=== PATIENT | female | born 1950 | race African-American/Black ===

== ENCOUNTER 2017-03-04 21:08 | Inpatient (IN) | payer MEDICARE, MEDICAID ==
[~2017-03-04] VITALS: Ht 162.6 cm; Wt 111.0 kg
[~2017-03-04 21:08] MED LIST: BIDIL PO; DIPH25CA83 PO; DOUNEB IH; FERR-63 PO; FLUT16SP15 BOTHNSTRLS; FURO40TA5 PO; HYDR25TA PO; LIDO30CR TP; MONT10TA24 PO; PREG150C PO; ROSU40TA PO
[2017-03-04 22:48] LABS: BASOPHILS % 0.6 % (0.0-2.0); EOSINOPHILS % 1.5 % (0.0-5.0); HEMATOCRIT. 27.7 % (36.0-48.0); HEMOGLOBIN. 9.1 g/dL (12.0-16.0); LYMPHOCYTES % 18.3 % (20.0-50.0); MEAN CORPUSCULAR VOLUME 85.6 fL (81.0-99.0); MEAN PLATELET VOLUME 7.5 fl (7.4-10.4); MONOCYTES % 7.7 % (2.0-8.0); NEUTROPHILS % 71.9 % (40.0-76.0); PLATELET 289 x1000/uL (130-400); RED BLOOD CELL COUNT 3.23 mill/uL (4.2-5.4); RED CELL DISTRIBUTION WIDTH 20.7 % (11.6-14.6)
[2017-03-04 22:51] LABS: CHLORIDE 104 mEq/L (98-107)
[2017-03-04 22:53] LABS: PROTHROMBIN TIME 10.7 sec (9.4-11.6)
[2017-03-04 22:55] LABS: BG CARBOXYHEMOGLOBIN 0.8 % (0.5-1.5); BG DEOXYHEMOGLOBIN 3.9 % (0.0-5.0); BG FRACTION INSPIRED OXYGEN 28; BG HCO3 ACT 29.1 mmol/L (22.0-26.0); BG METHEMOGLOBIN 0.1 % (0.0-1.5); BG OXYGEN SATURATION 96.1 % (92.0-98.5); BG OXYHEMOGLOBIN 95.2 % (94.0-97.0); BG PCO2 51.9 mmHg (35.0-45.0); BG PH 7.366 (7.350-7.450); BG PO2 85.3 mmHg (75.0-100.0); BG SAMPLE SITE RIGHT RADIAL; BG TOTAL HEMOGLOBIN 9.9 g/dL (12.0-18.0); BG VENT MODE NASAL CANNULA
[2017-03-04 22:57] LABS: CARBON DIOXIDE 30 mEq/L (21-32)
[2017-03-04 23:03] LABS: TROPONIN I < 0.02 ng/mL (0.00-0.04)
[2017-03-04] MEDS ORDERED: POTASSIUM CHLORIDE 20MEQ TABLET SR PO ONE (23:30)
[2017-03-04] MEDS ORDERED: FUROSEMIDE 40MG/4ML VIAL IVP ONE (23:30)
[2017-03-05] MEDS ORDERED: ENALAPRIL 2.5MG/2ML VIAL 2ML IV ONE (00:15)
[2017-03-05] MEDS ORDERED: DEXT 5%/0.45% NACL 1000ML 1,000 ML IV SCH (08:00)
[2017-03-05] MEDS ORDERED: CEFTRIAXONE 1 G PREMIX 50 ML IV SCH (08:00)
[2017-03-05] MEDS ORDERED: HYDROCODONE/ACETAMINOPHEN 5/325MG TABLET PO PRN (08:00)
[2017-03-05] MEDS ORDERED: MORPHINE SULFATE 1MG/ML 1ML INJ SYR(NEO) IV PRN (08:00)
[2017-03-05 08:12] VITALS: BP 113/47
[2017-03-05] MEDS ORDERED: ONDANSETRON HCL 4MG/2ML VIAL IV PRN (09:00)
[2017-03-05] MEDS ORDERED: IPRATROPIUM/ALBUTEROL 0.5-3(2.5)MG/3ML NEB INH PRN (09:00)
[2017-03-05] MEDS ORDERED: ACETAMINOPHEN 325MG TABLET PO PRN (09:00)
[2017-03-05] MEDS ORDERED: LORAZEPAM 2MG/ML CPJ IV PRN (09:00)
[2017-03-05] MEDS: POLYETHYLENE GLYCOL 3350 (17GM) 1 DOSE PACK PO SCH ×2 (09:00→17:00)
[2017-03-05 10:58] LABS: INR 1.1; PROTHROMBIN TIME 11.4 sec (9.4-11.6)
[2017-03-05] MEDS ORDERED: AZITHROMYCIN 500 MG in DEXT 5% WATER 250 ML IV NR (11:00)
[2017-03-05] MEDS ORDERED: WATER IV NR (11:00)
[2017-03-05] MEDS ORDERED: DEXT 5% IV NR (11:00)
[2017-03-05] MEDS ORDERED: AZITHROMYCIN IV NR (11:00)
[2017-03-05 11:11] LABS: BASOPHILS % 0.8 % (0.0-2.0); HEMATOCRIT. 27.3 % (36.0-48.0); HEMOGLOBIN. 8.8 g/dL (12.0-16.0); LYMPHOCYTES % 14.7 % (20.0-50.0); MEAN CORPUSCULAR VOLUME 86.8 fL (81.0-99.0); MEAN PLATELET VOLUME 7.9 fl (7.4-10.4); MONOCYTES % 8.3 % (2.0-8.0); NEUTROPHILS % 74.2 % (40.0-76.0); PLATELET 257 x1000/uL (130-400); RED BLOOD CELL COUNT 3.15 mill/uL (4.2-5.4); RED CELL DISTRIBUTION WIDTH 20.9 % (11.6-14.6)
[2017-03-05 11:23] LABS: CARBON DIOXIDE 31 mEq/L (21-32); CHLORIDE 107 mEq/L (98-107); PHOSPHORUS 3.1 mg/dL (2.5-4.9)
[2017-03-05] MEDS ORDERED: LIDOCAINE/PRILOCAINE CREAM 5 GM TUBE TOP PRN (11:30)
[2017-03-05] MEDS: PREDNISONE 20MG TABLET PO SCH (12:15)
[2017-03-05] MEDS: FERROUS SULFATE 325MG TABLET PO SCH ×3 (12:16→18:08)
[2017-03-05] MEDS: FUROSEMIDE 20MG/2ML VIAL IVP SCH (12:16)
[2017-03-05 12:40] VITALS: BP 104/45
[2017-03-05] MEDS: MORPHINE SULFATE 4 MG/ML CPJ (NOT FOR IM USE) IV PRN ×2 (12:43→19:36)
[2017-03-05 16:23] LABS: CREATINE KINASE 131 IU/L (26-192); CREATINE KINASE MB FRACTION 0.7 ng/mL (0.5-3.6); TROPONIN I < 0.02 ng/mL (0.00-0.04)
[2017-03-05 16:38] VITALS: BP 121/61
[2017-03-05] MEDS ORDERED: PREGABALIN 150 MG PO SCH (17:00)
[2017-03-05] MEDS ORDERED: DEXTROSE 50% WATER 50ML SYRINGE IV PRN (17:30)
[2017-03-05] MEDS: ISOSORB DINIT/HYDRALAZINE HCL 20/37.5MG TABLET PO SCH (17:36)
[2017-03-05] MEDS: PREGABALIN 75MG CAPSULE PO SCH (17:37)
[2017-03-05] MEDS: INSULIN LISPRO 100 UNITS/ML SUBCUT SCH ×2 (17:47→21:33)
[2017-03-05 20:07] VITALS: BP 114/45
[2017-03-05] MEDS: ATORVASTATIN CALCIUM 40MG TABLET PO SCH (21:24)
[2017-03-05] MEDS: MONTELUKAST SODIUM 10MG TABLET PO SCH (21:24)
[2017-03-05] MEDS: ZOLPIDEM TARTRATE 5MG TABLET PO PRN (21:25)
[2017-03-05] MEDS: BLOOD SUGAR DIAGNOSTIC STRIP TEST SCH (21:25)
[2017-03-06] VITALS: BP 93/45
[2017-03-06 00:12] LABS: CREATINE KINASE 114 IU/L (26-192); CREATINE KINASE MB FRACTION 1.3 ng/mL (0.5-3.6); TROPONIN I < 0.02 ng/mL (0.00-0.04)
[2017-03-06 05:10] VITALS: BP 124/55
[2017-03-06] MEDS: BLOOD SUGAR DIAGNOSTIC STRIP TEST SCH ×4 (06:27→21:33)
[2017-03-06 06:34] LABS: INR 1.1; PROTHROMBIN TIME 11.1 sec (9.4-11.6)
[2017-03-06 06:41] LABS: BASOPHILS % 0.3 % (0.0-2.0); HEMATOCRIT. 25.6 % (36.0-48.0); HEMOGLOBIN. 8.3 g/dL (12.0-16.0); LYMPHOCYTES % 14.4 % (20.0-50.0); MEAN CORPUSCULAR VOLUME 86.2 fL (81.0-99.0); MEAN PLATELET VOLUME 8.1 fl (7.4-10.4); MONOCYTES % 6.1 % (2.0-8.0); NEUTROPHILS % 79.2 % (40.0-76.0); PLATELET 256 x1000/uL (130-400); RED BLOOD CELL COUNT 2.98 mill/uL (4.2-5.4); RED CELL DISTRIBUTION WIDTH 20.4 % (11.6-14.6)
[2017-03-06 07:26] VITALS: BP 116/43
[2017-03-06 07:47] LABS: CARBON DIOXIDE 27 mEq/L (21-32); CHLORIDE 104 mEq/L (98-107); CREATINE KINASE 102 IU/L (26-192)
[2017-03-06] MEDS: INSULIN LISPRO 100 UNITS/ML SUBCUT SCH ×4 (07:50→21:00)
[2017-03-06 07:56] LABS: CREATINE KINASE MB FRACTION 1.1 ng/mL (0.5-3.6); TROPONIN I < 0.02 ng/mL (0.00-0.04)
[2017-03-06] MEDS ORDERED: AZITHROMYCIN 250 MG in DEXT 5% WATER 250 ML IV SCH (08:00)
[2017-03-06] MEDS: PREGABALIN 75MG CAPSULE PO SCH ×2 (08:30→17:29)
[2017-03-06] MEDS: HYDROCHLOROTHIAZIDE 25MG TABLET PO SCH (08:31)
[2017-03-06] MEDS: PREDNISONE 20MG TABLET PO SCH (08:32)
[2017-03-06] MEDS: ISOSORB DINIT/HYDRALAZINE HCL 20/37.5MG TABLET PO SCH ×2 (08:32→17:31)
[2017-03-06] MEDS: FUROSEMIDE 20MG/2ML VIAL IVP SCH (08:33)
[2017-03-06] MEDS ORDERED: MEDICATION NOT ON FORMULARY EA (Rosuvastatin Calcium (Crestor) 40 MG) PO SCH (09:00)
[2017-03-06] MEDS: POLYETHYLENE GLYCOL 3350 (17GM) 1 DOSE PACK PO SCH ×2 (09:00→17:00)
[2017-03-06 12:20] VITALS: BP 133/62
[2017-03-06] MEDS: MORPHINE SULFATE 4 MG/ML CPJ (NOT FOR IM USE) IV PRN (13:36)
[2017-03-06] MEDS: FERROUS SULFATE 325MG TABLET PO SCH ×2 (13:38→17:31)
[2017-03-06] MEDS ORDERED: OXYCODONE HCL/ACETAMINOPHEN 5/325MG TABLET PO PRN (15:00)
[2017-03-06] MEDS ORDERED: NALOXONE HCL 0.4 MG/ML 1ML VIAL IV PRN (15:00)
[2017-03-06 15:34] VITALS: BP 143/74
[2017-03-06] MEDS: GUAIFENESIN 200MG/10ML SUGAR FREE UDC PO PRN (18:00)
[2017-03-06 20:00] VITALS: BP 106/45
[2017-03-06] MEDS ORDERED: ENOXAPARIN 30MG/0.3ML SYR SUBCUT SCH (21:00)
[2017-03-06] MEDS: MONTELUKAST SODIUM 10MG TABLET PO SCH (21:19)
[2017-03-06] MEDS: ATORVASTATIN CALCIUM 40MG TABLET PO SCH (21:19)
[2017-03-06] MEDS: ZOLPIDEM TARTRATE 5MG TABLET PO PRN (21:19)
[2017-03-06] MEDS: ENOXAPARIN 40MG/0.4ML SYR SUBCUT SCH (21:20)
[2017-03-07] VITALS: BP 129/59
[2017-03-07] MEDS: MORPHINE SULFATE 4 MG/ML CPJ (NOT FOR IM USE) IV PRN ×3 (00:32→14:07)
[2017-03-07 01:26] LABS: CLARITY URINE CLEAR (CLEAR); COLOR URINE YELLOW (YELLOW); GLUCOSE URINE NEGATIVE (NEGATIVE); KETONES URINE NEGATIVE (NEGATIVE); LEUKOCYTE ESTERASE URINE NEGATIVE (NEGATIVE); NITRITE URINE NEGATIVE (NEGATIVE); OCCULT BLOOD URINE NEGATIVE (NEGATIVE); PROTEIN URINE 1+ (NEGATIVE); SPECIFIC GRAVITY URINE 1.016 (1.005-1.030); UROBILINOGEN URINE 0.2 E.U./dL (0.2-1.0)
[2017-03-07 04:00] VITALS: BP 112/52
[2017-03-07] MEDS: BLOOD SUGAR DIAGNOSTIC STRIP TEST SCH ×4 (06:31→21:30)
[2017-03-07] MEDS: INSULIN LISPRO 100 UNITS/ML SUBCUT SCH ×4 (06:50→21:00)
[2017-03-07 07:02] LABS: PROTHROMBIN TIME 10.9 sec (9.4-11.6)
[2017-03-07 07:08] LABS: BASOPHILS % 0.2 % (0.0-2.0); HEMATOCRIT. 25.2 % (36.0-48.0); HEMOGLOBIN. 8.2 g/dL (12.0-16.0); LYMPHOCYTES % 16.3 % (20.0-50.0); MEAN CORPUSCULAR HEMOGLOBIN 27.8 pg (28.0-32.0); MEAN CORPUSCULAR VOLUME 85.7 fL (81.0-99.0); MEAN PLATELET VOLUME 8.2 fl (7.4-10.4); MONOCYTES % 8.8 % (2.0-8.0); NEUTROPHILS % 74.7 % (40.0-76.0); PLATELET 249 x1000/uL (130-400); RED BLOOD CELL COUNT 2.95 mill/uL (4.2-5.4)
[2017-03-07 07:50] LABS: CARBON DIOXIDE 28 mEq/L (21-32); CHLORIDE 103 mEq/L (98-107)
[2017-03-07 08:00] VITALS: BP 113/58
[2017-03-07] MEDS: FUROSEMIDE 20MG/2ML VIAL IVP SCH (08:29)
[2017-03-07] MEDS: FERROUS SULFATE 325MG TABLET PO SCH ×3 (08:29→18:32)
[2017-03-07] MEDS: PREDNISONE 20MG TABLET PO SCH (08:30)
[2017-03-07] MEDS: HYDROCHLOROTHIAZIDE 25MG TABLET PO SCH (08:30)
[2017-03-07] MEDS: POLYETHYLENE GLYCOL 3350 (17GM) 1 DOSE PACK PO SCH ×2 (08:30→16:49)
[2017-03-07] MEDS: PREGABALIN 75MG CAPSULE PO SCH ×2 (08:30→16:45)
[2017-03-07] MEDS: ISOSORB DINIT/HYDRALAZINE HCL 20/37.5MG TABLET PO SCH ×2 (08:30→16:45)
[2017-03-07 11:33] VITALS: BP 113/58
[2017-03-07] MEDS ORDERED: INFLUENZA VIRUS VACCINE 0.5ML SYR IM ONE (15:00)
[2017-03-07 15:31] VITALS: BP 147/68
[2017-03-07 20:00] VITALS: BP 126/57
[2017-03-07] MEDS ORDERED: EPOETIN ALFA 10000UNITS/ML VIAL SUBCUT NR (21:00)
[2017-03-07] MEDS: MONTELUKAST SODIUM 10MG TABLET PO SCH (21:29)
[2017-03-07] MEDS: ENOXAPARIN 40MG/0.4ML SYR SUBCUT SCH (21:29)
[2017-03-07] MEDS: ATORVASTATIN CALCIUM 40MG TABLET PO SCH (21:29)
[2017-03-07] MEDS: GUAIFENESIN 200MG/10ML SUGAR FREE UDC PO PRN (21:29)
[2017-03-07] MEDS: OXYCODONE HCL/ACETAMINOPHEN 5/325MG TABLET PO PRN (21:30)
[2017-03-07] MEDS: ZOLPIDEM TARTRATE 5MG TABLET PO PRN (23:00)
[2017-03-08] VITALS (7 sets, daily range): BP systolic 103–151; BP diastolic 45–94
[2017-03-08 05:59] LABS: PROTHROMBIN TIME 10.8 sec (9.4-11.6)
[2017-03-08] MEDS: OXYCODONE HCL/ACETAMINOPHEN 5/325MG TABLET PO PRN (06:38)
[2017-03-08] MEDS: BLOOD SUGAR DIAGNOSTIC STRIP TEST SCH ×4 (06:38→21:00)
[2017-03-08] MEDS: GUAIFENESIN 200MG/10ML SUGAR FREE UDC PO PRN ×2 (06:44→13:37)
[2017-03-08 07:17] LABS: CARBON DIOXIDE 29 mEq/L (21-32); CHLORIDE 103 mEq/L (98-107)
[2017-03-08 07:22] LABS: TOTAL IRON BINDING CAPACITY 301 ug/dL (250-450)
[2017-03-08] MEDS: INSULIN LISPRO 100 UNITS/ML SUBCUT SCH ×4 (07:50→23:24)
[2017-03-08] MEDS: POLYETHYLENE GLYCOL 3350 (17GM) 1 DOSE PACK PO SCH ×2 (09:00→17:00)
[2017-03-08] MEDS: FUROSEMIDE 20MG/2ML VIAL IVP SCH (09:22)
[2017-03-08] MEDS: HYDROCHLOROTHIAZIDE 25MG TABLET PO SCH (09:22)
[2017-03-08] MEDS: ISOSORB DINIT/HYDRALAZINE HCL 20/37.5MG TABLET PO SCH ×2 (09:23→17:10)
[2017-03-08] MEDS: PREGABALIN 75MG CAPSULE PO SCH ×2 (09:23→17:04)
[2017-03-08] MEDS: FERROUS SULFATE 325MG TABLET PO SCH ×3 (09:24→17:03)
[2017-03-08] MEDS: PREDNISONE 20MG TABLET PO SCH (09:24)
[2017-03-08 09:34] LABS: BASOPHILS % 0.4 % (0.0-2.0); EOSINOPHILS % 1.7 % (0.0-5.0); HEMATOCRIT. 28.9 % (36.0-48.0); HEMOGLOBIN. 9.2 g/dL (12.0-16.0); LYMPHOCYTES % 30.1 % (20.0-50.0); MEAN CORPUSCULAR HEMOGLOBIN 27.8 pg (28.0-32.0); MEAN CORPUSCULAR VOLUME 86.9 fL (81.0-99.0); MEAN PLATELET VOLUME 8.6 fl (7.4-10.4); MONOCYTES % 9.3 % (2.0-8.0); NEUTROPHILS % 58.5 % (40.0-76.0); PLATELET 250 x1000/uL (130-400); RED BLOOD CELL COUNT 3.32 mill/uL (4.2-5.4); RED CELL DISTRIBUTION WIDTH 20.2 % (11.6-14.6)
[2017-03-08] MEDS: DIPHENHYDRAMINE 25MG CAPSULE PO PRN ×2 (17:09→23:16)
[2017-03-08] MEDS: ZOLPIDEM TARTRATE 5MG TABLET PO PRN (23:16)
[2017-03-08] MEDS: ENOXAPARIN 40MG/0.4ML SYR SUBCUT SCH (23:21)
[2017-03-08] MEDS: MONTELUKAST SODIUM 10MG TABLET PO SCH (23:22)
[2017-03-08] MEDS: ATORVASTATIN CALCIUM 40MG TABLET PO SCH (23:22)
[2017-03-09 04:00] VITALS: BP 129/63
[2017-03-09] MEDS: BLOOD SUGAR DIAGNOSTIC STRIP TEST SCH ×4 (06:41→21:00)
[2017-03-09 07:47] VITALS: BP 129/84
[2017-03-09] MEDS: INSULIN LISPRO 100 UNITS/ML SUBCUT SCH ×4 (07:50→21:00)
[2017-03-09 08:29] LABS: PROTHROMBIN TIME 10.9 sec (9.4-11.6)
[2017-03-09 08:36] LABS: BASOPHILS % 0.5 % (0.0-2.0); EOSINOPHILS % 0.1 % (0.0-5.0); HEMATOCRIT. 29.1 % (36.0-48.0); HEMOGLOBIN. 9.4 g/dL (12.0-16.0); LYMPHOCYTES % 25.5 % (20.0-50.0); MEAN CORPUSCULAR HEMOGLOBIN 27.8 pg (28.0-32.0); MEAN PLATELET VOLUME 8.6 fl (7.4-10.4); NEUTROPHILS % 64.9 % (40.0-76.0); PLATELET 298 x1000/uL (130-400); RED BLOOD CELL COUNT 3.39 mill/uL (4.2-5.4); RED CELL DISTRIBUTION WIDTH 19.9 % (11.6-14.6)
[2017-03-09 08:58] LABS: CARBON DIOXIDE 32 mEq/L (21-32); CHLORIDE 102 mEq/L (98-107)
[2017-03-09] MEDS ORDERED: POTASSIUM CHLORIDE 20MEQ TABLET SR PO NR (09:45)
[2017-03-09] MEDS: HYDROCHLOROTHIAZIDE 25MG TABLET PO SCH (10:52)
[2017-03-09] MEDS: PREDNISONE 20MG TABLET PO SCH (10:52)
[2017-03-09] MEDS: FERROUS SULFATE 325MG TABLET PO SCH ×3 (10:52→17:20)
[2017-03-09] MEDS: POLYETHYLENE GLYCOL 3350 (17GM) 1 DOSE PACK PO SCH ×2 (10:53→17:00)
[2017-03-09] MEDS: PREGABALIN 75MG CAPSULE PO SCH ×2 (10:53→17:19)
[2017-03-09] MEDS: ISOSORB DINIT/HYDRALAZINE HCL 20/37.5MG TABLET PO SCH ×2 (10:57→17:25)
[2017-03-09 11:37] VITALS: BP 141/61
[2017-03-09] MEDS: FUROSEMIDE 20MG/2ML VIAL IVP SCH (11:38)
[2017-03-09] MEDS: OXYCODONE HCL/ACETAMINOPHEN 5/325MG TABLET PO PRN ×2 (11:40→22:46)
[2017-03-09 15:32] VITALS: BP 128/65
[2017-03-09] MEDS ORDERED: ISOS1TAB PO (17:15)
[2017-03-09] MEDS ORDERED: POLY17PO3 PO (17:15)
[2017-03-09] MEDS ORDERED: LIP40 PO (17:15)
[2017-03-09] MEDS: GUAIFENESIN 200MG/10ML SUGAR FREE UDC PO PRN (17:27)
[2017-03-09] MEDS ORDERED: PNEUMOCOCCAL 23-VAL P-SAC VAC 0.5 ML IM ONE (20:00)
[2017-03-09] MEDS: MONTELUKAST SODIUM 10MG TABLET PO SCH (22:46)
[2017-03-09] MEDS: ENOXAPARIN 40MG/0.4ML SYR SUBCUT SCH (22:46)
[2017-03-09] MEDS: ATORVASTATIN CALCIUM 40MG TABLET PO SCH (22:46)
[2017-03-10 00:06] VITALS: BP 132/68
[2017-03-10] MEDS: ZOLPIDEM TARTRATE 5MG TABLET PO PRN (00:06)
[2017-03-10] MEDS: DIPHENHYDRAMINE 25MG CAPSULE PO PRN ×2 (00:06→12:44)
[2017-03-10 04:00] VITALS: BP 114/48
[2017-03-10] MEDS: BLOOD SUGAR DIAGNOSTIC STRIP TEST SCH ×2 (06:12→12:12)
[2017-03-10 07:08] LABS: INR 1.1; PROTHROMBIN TIME 10.9 sec (9.4-11.6)
[2017-03-10 07:36] LABS: BASOPHILS % 0.2 % (0.0-2.0); EOSINOPHILS % 0.1 % (0.0-5.0); HEMATOCRIT. 28.3 % (36.0-48.0); HEMOGLOBIN. 9.3 g/dL (12.0-16.0); LYMPHOCYTES % 22.4 % (20.0-50.0); MEAN CORPUSCULAR HEMOGLOBIN 27.8 pg (28.0-32.0); MEAN CORPUSCULAR VOLUME 84.8 fL (81.0-99.0); MEAN PLATELET VOLUME 8.5 fl (7.4-10.4); MONOCYTES % 7.5 % (2.0-8.0); NEUTROPHILS % 69.8 % (40.0-76.0); PLATELET 267 x1000/uL (130-400); RED BLOOD CELL COUNT 3.33 mill/uL (4.2-5.4); RED CELL DISTRIBUTION WIDTH 19.8 % (11.6-14.6)
[2017-03-10 07:37] VITALS: BP 115/55
[2017-03-10] MEDS: FERROUS SULFATE 325MG TABLET PO SCH ×3 (07:50→12:45)
[2017-03-10] MEDS: INSULIN LISPRO 100 UNITS/ML SUBCUT SCH ×2 (07:50→12:12)
[2017-03-10 08:15] LABS: CARBON DIOXIDE 34 mEq/L (21-32); CHLORIDE 103 mEq/L (98-107)
[2017-03-10] MEDS: POLYETHYLENE GLYCOL 3350 (17GM) 1 DOSE PACK PO SCH (09:00)
[2017-03-10] MEDS: PREGABALIN 75MG CAPSULE PO SCH (10:08)
[2017-03-10] MEDS: HYDROCHLOROTHIAZIDE 25MG TABLET PO SCH (10:09)
[2017-03-10] MEDS: ISOSORB DINIT/HYDRALAZINE HCL 20/37.5MG TABLET PO SCH (10:10)
[2017-03-10] MEDS: FUROSEMIDE 20MG/2ML VIAL IVP SCH (10:10)
[2017-03-10 11:32] VITALS: BP 113/69
[2017-03-10] MEDS: OXYCODONE HCL/ACETAMINOPHEN 5/325MG TABLET PO PRN (12:12)
[2017-03-10 15:30] VITALS: BP 113/69
== END 2017-03-10 17:30 | disposition home health service (06) | DRG 291 ==
LOC: ER 21:10 → 6WST 03-05 00:10 → EDBEDREQ 03-05 00:11 → EDBEDREQTM 03-05 00:11 → ENRESERV 03-05 01:15 → 6WST 03-05 06:56
PROVIDERS: ADMIT Internal Medicine; ATTEND Internal Medicine
PROC: 5A09557 Assistance with Respiratory Ventilation, Greater than 96 Consecutive Hours, Continuous Positive Airway Pressure (ICD-10-PCS; principal; 2017-03-05)
DX: I13.0 Hypertensive heart and chronic kidney disease with heart failure and stage 1 through stage 4 chronic kidney disease, or unspecified chronic kidney disease (principal); I50.33 Acute on chronic diastolic (congestive) heart failure; J96.10 Chronic respiratory failure, unspecified whether with hypoxia or hypercapnia; N18.4 Chronic kidney disease, stage 4 (severe); I42.9 Cardiomyopathy, unspecified; E11.22 Type 2 diabetes mellitus with diabetic chronic kidney disease; J98.11 Atelectasis; Z68.41 Body mass index [BMI] 40.0-44.9, adult; E66.01 Morbid (severe) obesity due to excess calories; D64.9 Anemia, unspecified; D72.829 Elevated white blood cell count, unspecified; E78.5 Hyperlipidemia, unspecified; G47.00 Insomnia, unspecified; G47.33 Obstructive sleep apnea (adult) (pediatric); G89.4 Chronic pain syndrome; M79.641 Pain in right hand; M25.531 Pain in right wrist; J44.9 Chronic obstructive pulmonary disease, unspecified; K21.9 Gastro-esophageal reflux disease without esophagitis; L30.4 Erythema intertrigo; M13.0 Polyarthritis, unspecified; M40.209 Unspecified kyphosis, site unspecified; M47.812 Spondylosis without myelopathy or radiculopathy, cervical region; N60.01 Solitary cyst of right breast; Z88.0 Allergy status to penicillin; Z88.5 Allergy status to narcotic agent; Z90.49 Acquired absence of other specified parts of digestive tract; Z90.710 Acquired absence of both cervix and uterus; Z79.899 Other long term (current) drug therapy
CPT/HCPCS: 36415; 36600; 71010; 71250; 80053; 81001; 82375; 82550; 82553; 82668; 82805; 82962; 83540; 83550; 83735; 83880; 84100; 84443; 84484; 85025; 85610; 87086; 90686; 93005; 93306; 93970; 94620; 94660; 96374; 96375; 97110; 97116; 97162; 97166; 97530; 99285; C1893; J0456; J0885; J1650; J1815; J1940; J2270; J3490; J7060; J7512; Q0163

== ENCOUNTER 2017-10-14 22:52 | Emergency (ER) | payer MEDICARE, MEDICAID ==
[~2017-10-14] VITALS: Ht 162.6 cm; Wt 115.0 kg
[~2017-10-14 22:52] MED LIST changes: +ISOS1TAB PO; +LIP40 PO; +POLY17PO3 PO
[2017-10-14 23:48] LABS: BASOPHILS % 0.6 % (0.0-2.0); EOSINOPHILS % 1.8 % (0.0-5.0); HEMATOCRIT. 27.6 % (36.0-48.0); HEMOGLOBIN. 9.3 g/dL (12.0-16.0); LYMPHOCYTES % 16.1 % (20.0-50.0); MEAN CORPUSCULAR HEMOGLOBIN 28.7 pg (28.0-32.0); MEAN CORPUSCULAR VOLUME 85.5 fL (81.0-99.0); MEAN PLATELET VOLUME 8.1 fl (7.4-10.4); MONOCYTES % 7.8 % (2.0-8.0); NEUTROPHILS % 73.7 % (40.0-76.0); PLATELET 318 x1000/uL (130-400); RED BLOOD CELL COUNT 3.23 mill/uL (4.2-5.4); RED CELL DISTRIBUTION WIDTH 17.2 % (11.6-14.6)
[2017-10-14 23:54] LABS: CHLORIDE 97 mEq/L (98-107)
[2017-10-14 23:59] LABS: D-DIMER 0.72 mg/L FEU (<0.50); PROTHROMBIN TIME 10.5 sec (9.4-11.6)
[2017-10-15] MEDS ORDERED: ACETAMINOPHEN 325MG TABLET PO STA (00:38)
[2017-10-15] MEDS ORDERED: NITROGLYCERIN OINT 1GM/INCH UDPKT TD ONE (00:45)
[2017-10-15] MEDS ORDERED: ASPIRIN 81MG TABLET PO ONE (00:45)
[2017-10-15] MEDS ORDERED: POTASSIUM BICARB/CIT ACID 25 MEQ TABLET.EFF PO SCH (01:00)
[2017-10-15] MEDS ORDERED: POTASSIUM BICARB/CIT ACID 25 MEQ TABLET.EFF PO ONE (01:30)
[2017-10-15] MEDS ORDERED: HYDROCODONE/ACETAMINOPHEN 10/325MG TABLET PO ONE (04:00)
[2017-10-15 05:30] VITALS: BP 98/49
== END 2017-10-15 05:11 | disposition home or self-care (01) ==
LOC: ER 22:52
DX: E87.6 Hypokalemia (principal); R07.9 Chest pain, unspecified; R20.2 Paresthesia of skin; E11.9 Type 2 diabetes mellitus without complications; I50.9 Heart failure, unspecified; I11.0 Hypertensive heart disease with heart failure; M19.90 Unspecified osteoarthritis, unspecified site; Z90.710 Acquired absence of both cervix and uterus; Z90.49 Acquired absence of other specified parts of digestive tract; Z98.890 Other specified postprocedural states; Z90.89 Acquired absence of other organs; Z88.5 Allergy status to narcotic agent; Z88.0 Allergy status to penicillin
CPT/HCPCS: 36415; 71045; 80053; 83690; 83880; 84484; 85025; 85379; 85610; 87804; 93005; 99285; G0482

== ENCOUNTER 2017-11-10 22:59 | Inpatient (IN) | payer MEDICARE, MEDICAID ==
[~2017-11-10] VITALS: Ht 163.8 cm; Wt 109.8 kg
[2017-11-11] MEDS ORDERED: KETOROLAC 30MG/ML VIAL IV STA (00:03)
[2017-11-11 00:46] LABS: BASOPHILS % 0.6 % (0.0-2.0); EOSINOPHILS % 2.1 % (0.0-5.0); HEMATOCRIT. 28.1 % (36.0-48.0); HEMOGLOBIN. 9.3 g/dL (12.0-16.0); LYMPHOCYTES % 21.3 % (20.0-50.0); MEAN CORPUSCULAR HEMOGLOBIN 28.3 pg (28.0-32.0); MEAN CORPUSCULAR VOLUME 85.4 fL (81.0-99.0); MEAN PLATELET VOLUME 8.5 fl (7.4-10.4); MONOCYTES % 7.9 % (2.0-8.0); NEUTROPHILS % 68.1 % (40.0-76.0); PLATELET 275 x1000/uL (130-400); RED BLOOD CELL COUNT 3.29 mill/uL (4.2-5.4); RED CELL DISTRIBUTION WIDTH 16.8 % (11.6-14.6)
[2017-11-11 00:52] LABS: CHLORIDE 107 mEq/L (98-107); INR 1.1; PROTHROMBIN TIME 10.9 sec (9.4-11.6)
[2017-11-11 05:40] VITALS: BP 114/54
[2017-11-11 08:00] VITALS: BP 120/45
[2017-11-11] MEDS ORDERED: POTASSIUM CHLORIDE 20MEQ TABLET SR PO NR (09:30)
[2017-11-11] MEDS ORDERED: DEXTROSE 50% WATER 50ML SYRINGE IV PRN (11:45)
[2017-11-11 12:00] VITALS: BP 112/49
[2017-11-11 12:03] LABS: CLARITY URINE CLEAR (CLEAR); COLOR URINE YELLOW (YELLOW); KETONES URINE NEGATIVE (NEGATIVE); LEUKOCYTE ESTERASE URINE NEGATIVE (NEGATIVE); NITRITE URINE NEGATIVE (NEGATIVE); OCCULT BLOOD URINE TRACE (NEGATIVE); PROTEIN URINE 1+ (NEGATIVE); SPECIFIC GRAVITY URINE 1.016 (1.005-1.030); UROBILINOGEN URINE 0.2 E.U./dL (0.2-1.0)
[2017-11-11] MEDS: BLOOD SUGAR DIAGNOSTIC STRIP TEST SCH ×3 (12:10→21:00)
[2017-11-11 12:35] LABS: *AMPHETAMINES SCREEN URINE NEGATIVE (NEGATIVE); *BARBITURATES SCREEN URINE NEGATIVE (NEGATIVE); *BENZODIAZEPINES SCREEN URINE NEGATIVE (NEGATIVE); *COCAINE SCREEN URINE NEGATIVE (NEGATIVE); METHADONE URINE SCREEN NEGATIVE (NEGATIVE); OPIATES URINE SCREEN NEGATIVE (NEGATIVE)
[2017-11-11 12:36] LABS: PHENCYCLIDINE URINE SCREEN NEGATIVE (NEGATIVE)
[2017-11-11 12:39] LABS: CANNABINOID URINE SCREEN NEGATIVE (NEGATIVE)
[2017-11-11] MEDS: INSULIN LISPRO 100 UNITS/ML SUBCUT SCH ×3 (12:40→21:00)
[2017-11-11] MEDS ORDERED: ACETAMINOPHEN 500MG TABLET PO PRN (13:30)
[2017-11-11] MEDS ORDERED: ENOXAPARIN 30MG/0.3ML SYR SUBCUT SCH (15:00)
[2017-11-11 16:00] VITALS: BP 114/47
[2017-11-11] MEDS: HYDROCODONE/ACETAMINOPHEN 10/325MG TABLET PO PRN (17:39)
[2017-11-11 17:57] LABS: HEMATOCRIT 24.7 % (36.0-48.0); HEMOGLOBIN 8.2 g/dL (12.0-16.0); MEAN CORPUSCULAR HEMOGLOBIN 28.4 pg (28.0-32.0); MEAN CORPUSCULAR VOLUME 85.3 fL (81.0-99.0); PLATELET 242 x1000/uL (130-400)
[2017-11-11 20:00] VITALS: BP 102/58
[2017-11-12] MEDS: HYDROCODONE/ACETAMINOPHEN 10/325MG TABLET PO PRN (03:39)
[2017-11-12 04:00] VITALS: BP 119/50
[2017-11-12] MEDS ORDERED: LEVO5TAB13 PO (06:16)
[2017-11-12] MEDS ORDERED: ZOLP10TA6 PO (06:17)
[2017-11-12] MEDS ORDERED: LUBI24CA5 PO (06:18)
[2017-11-12] MEDS ORDERED: OXYC-579 PO (06:20)
[2017-11-12] MEDS ORDERED: LOSA25TA12 PO (06:21)
[2017-11-12] MEDS ORDERED: ABIL10 PO (06:22)
[2017-11-12] MEDS ORDERED: ESOM40CA PO (06:23)
[2017-11-12] MEDS ORDERED: ATROV IH (06:24)
[2017-11-12] MEDS ORDERED: BUDE6HFA IH (06:24)
[2017-11-12] MEDS: DIATR MEGLU/DIATRIZOATE SOLN 30ML PO NR ×2 (06:54→08:16)
[2017-11-12] MEDS: BLOOD SUGAR DIAGNOSTIC STRIP TEST SCH (06:54)
[2017-11-12 07:31] LABS: BASOPHILS % 0.7 % (0.0-2.0); EOSINOPHILS % 3.5 % (0.0-5.0); HEMATOCRIT. 25.7 % (36.0-48.0); HEMOGLOBIN. 8.7 g/dL (12.0-16.0); MEAN CORPUSCULAR HEMOGLOBIN 28.9 pg (28.0-32.0); MEAN CORPUSCULAR VOLUME 85.4 fL (81.0-99.0); MEAN PLATELET VOLUME 8.7 fl (7.4-10.4); MONOCYTES % 9.4 % (2.0-8.0); NEUTROPHILS % 55.4 % (40.0-76.0); PLATELET 268 x1000/uL (130-400); RED BLOOD CELL COUNT 3.01 mill/uL (4.2-5.4); RED CELL DISTRIBUTION WIDTH 16.8 % (11.6-14.6)
[2017-11-12 07:34] LABS: PHOSPHORUS 3.6 mg/dL (2.5-4.9)
[2017-11-12 07:38] LABS: AMMONIA 38 uMol/L (<32); T4 FREE 0.94 ng/dL (0.76-1.46)
[2017-11-12] MEDS: INSULIN LISPRO 100 UNITS/ML SUBCUT SCH (07:40)
[2017-11-12 08:00] VITALS: BP 105/52
[2017-11-12 09:22] VITALS: BP 105/52
[2017-11-12 10:40] VITALS: BP 105/52
== END 2017-11-12 10:40 | disposition home or self-care (01) | DRG 682 ==
LOC: ER 23:14 → 8WST 11-11 02:19 → EDBEDREQ 11-11 02:23 → ENRESERV 11-11 03:31 → CANRESERV 11-11 03:31 → ENRESERV 11-11 03:42
PROVIDERS: ADMIT Internal Medicine; ATTEND Internal Medicine
DX: N17.9 Acute kidney failure, unspecified (principal); G93.40 Encephalopathy, unspecified; E11.22 Type 2 diabetes mellitus with diabetic chronic kidney disease; I13.0 Hypertensive heart and chronic kidney disease with heart failure and stage 1 through stage 4 chronic kidney disease, or unspecified chronic kidney disease; I50.30 Unspecified diastolic (congestive) heart failure; E66.01 Morbid (severe) obesity due to excess calories; Z68.41 Body mass index [BMI] 40.0-44.9, adult; D64.9 Anemia, unspecified; E78.5 Hyperlipidemia, unspecified; G47.30 Sleep apnea, unspecified; M13.861 Other specified arthritis, right knee; M13.851 Other specified arthritis, right hip; N18.3 Chronic kidney disease, stage 3 (moderate); N20.0 Calculus of kidney; Z90.49 Acquired absence of other specified parts of digestive tract; Z90.710 Acquired absence of both cervix and uterus; Z99.81 Dependence on supplemental oxygen; Z88.5 Allergy status to narcotic agent; Z88.0 Allergy status to penicillin; Z79.899 Other long term (current) drug therapy
CPT/HCPCS: 36415; 70450; 71045; 74176; 80048; 80053; 80305; 81003; 82140; 82728; 82962; 83540; 83550; 83735; 83880; 84100; 84439; 84443; 84484; 85025; 85027; 85610; 85651; 93005; 93306; 93880; 96374; 99285; C1893; J1650; J1885; Q9963

== ENCOUNTER 2018-09-15 21:44 | Inpatient (IN) | payer MEDICARE, MEDICAID ==
[~2018-09-15] VITALS: Ht 165.1 cm; Wt 124.3 kg
[~2018-09-15 21:44] MED LIST changes: +ABIL10 PO; +ATROV IH; +BUDE6HFA IH; +ESOM40CA PO; +LOSA25TA12 PO; +LUBI24CA5 PO; +OXYC-579 PO; +ZOLP10TA6 PO
[2018-09-15] MEDS ORDERED: IPRATROPIUM BROMIDE (0.02%) 0.5MG/2.5ML NEB HHN STA (22:43)
[2018-09-15] MEDS ORDERED: METHYLPREDNISOLONE SOD SUCC 125 MG/2 ML VIAL IV STA (22:43)
[2018-09-15] MEDS ORDERED: ALBUTEROL (0.083%) 2.5MG/3ML NEB HHN STA (22:43)
[2018-09-15 23:16] LABS: BASOPHILS % 0.9 % (0.0-2.0); EOSINOPHILS % 5.2 % (0.0-5.0); HEMATOCRIT. 27.4 % (36.0-48.0); HEMOGLOBIN. 8.9 g/dL (12.0-16.0); LYMPHOCYTES % 20.7 % (20.0-50.0); MEAN CORPUSCULAR VOLUME 89.2 fL (81.0-99.0); MEAN PLATELET VOLUME 7.4 fl (7.4-10.4); MONOCYTES % 8.2 % (2.0-8.0); PLATELET 218 x1000/uL (130-400); RED BLOOD CELL COUNT 3.07 mill/uL (4.2-5.4); RED CELL DISTRIBUTION WIDTH 18.8 % (11.6-14.6)
[2018-09-15 23:22] LABS: CHLORIDE 110 mEq/L (98-107)
[2018-09-16] MEDS ORDERED: NITROGLYCERIN 0.4MG TABLET SL SL ONE
[2018-09-16] MEDS ORDERED: ACETAMINOPHEN 500MG TABLET PO SCH (00:30)
[2018-09-16] MEDS ORDERED: FUROSEMIDE 100MG/10ML VIAL IVP SCH (00:30)
[2018-09-16] MEDS ORDERED: POTASSIUM CHLORIDE INJ 40 MEQ in DEXT 5% WATER 250 ML IV SCH (01:00)
[2018-09-16 02:56] LABS: CLARITY URINE CLEAR (CLEAR); COLOR URINE YELLOW (YELLOW); KETONES URINE NEGATIVE (NEGATIVE); LEUKOCYTE ESTERASE URINE NEGATIVE (NEGATIVE); NITRITE URINE NEGATIVE (NEGATIVE); OCCULT BLOOD URINE TRACE (NEGATIVE); PH URINE 6.5 (4.5-8.0); PROTEIN URINE NEGATIVE (NEGATIVE); SPECIFIC GRAVITY URINE 1.005 (1.005-1.030); UROBILINOGEN URINE 0.2 E.U./dL (0.2-1.0)
[2018-09-16 06:00] VITALS: BP 139/71
[2018-09-16 08:00] VITALS: BP 152/77
[2018-09-16] MEDS ORDERED: PANT40SU MT (08:02)
[2018-09-16] MEDS ORDERED: ISOS30TA12 MT (08:02)
[2018-09-16] MEDS ORDERED: MELO-104 MT (08:02)
[2018-09-16] MEDS ORDERED: DOCUSATE SODIUM 100MG CAPSULE PO PRN (08:30)
[2018-09-16] MEDS ORDERED: LORAZEPAM 2MG/ML CPJ IV PRN (08:30)
[2018-09-16] MEDS ORDERED: HYDRALAZINE 20MG/ML VIAL IV PRN (08:30)
[2018-09-16] MEDS ORDERED: MAGNESIUM/ALUMINUM HYDROXIDE/SIMETHICONE 30ML UDC PO PRN (08:30)
[2018-09-16] MEDS ORDERED: DEXTROSE 50% WATER 50ML SYRINGE IV PRN (08:30)
[2018-09-16] MEDS ORDERED: HYDROCODONE/ACETAMINOPHEN 10/325MG TABLET PO PRN (08:30)
[2018-09-16] MEDS ORDERED: ACETAMINOPHEN 325MG TABLET PO PRN (08:30)
[2018-09-16] MEDS ORDERED: ONDANSETRON HCL 4MG/2ML INJ IV PRN (08:30)
[2018-09-16] MEDS ORDERED: GUAIFENESIN 200MG/10ML SUGAR FREE UDC PO PRN (08:30)
[2018-09-16] MEDS ORDERED: CLONIDINE 0.1MG TABLET PO PRN (08:30)
[2018-09-16] MEDS: INSULIN LISPRO 100 UNITS/ML SUBCUT SCH ×4 (08:46→21:44)
[2018-09-16] MEDS: BLOOD SUGAR DIAGNOSTIC STRIP TEST SCH ×4 (09:27→21:45)
[2018-09-16] MEDS: METHYLPREDNISOLONE SOD SUCC 125 MG/2 ML VIAL IV SCH ×3 (09:42→21:42)
[2018-09-16] MEDS: ENOXAPARIN 40MG/0.4ML SYR SUBCUT SCH (09:42)
[2018-09-16] MEDS: ASPIRIN 81MG EC TABLET PO SCH (09:42)
[2018-09-16] MEDS ORDERED: ZOLPIDEM TARTRATE 5MG TABLET PO PRN (10:30)
[2018-09-16 12:00] VITALS: BP 146/64
[2018-09-16] MEDS: POTASSIUM CHLORIDE 20MEQ TABLET SR PO SCH (13:34)
[2018-09-16] MEDS: FERROUS SULFATE 325MG TABLET PO SCH ×2 (13:34→17:37)
[2018-09-16] MEDS: SODIUM CHLORIDE 0.9% INJ 3ML FLUSH IVF SCH ×2 (13:35→21:45)
[2018-09-16] MEDS: HYDROMORPHONE HCL/PF 2MG/ML CPJ IV PRN ×2 (13:49→21:43)
[2018-09-16 16:00] VITALS: BP 137/67
[2018-09-16 17:05] LABS: CREATINE KINASE 347 IU/L (26-192)
[2018-09-16 17:06] LABS: CREATINE KINASE MB FRACTION 1.4 ng/mL (0.5-3.6)
[2018-09-16 20:00] VITALS: BP 137/63
[2018-09-17] VITALS: BP 139/58
[2018-09-17 01:38] LABS: CREATINE KINASE 329 IU/L (26-192)
[2018-09-17 01:39] LABS: CREATINE KINASE MB FRACTION 1.4 ng/mL (0.5-3.6)
[2018-09-17] MEDS: METHYLPREDNISOLONE SOD SUCC 125 MG/2 ML VIAL IV SCH ×2 (03:51→09:36)
[2018-09-17] MEDS: HYDROMORPHONE HCL/PF 2MG/ML CPJ IV PRN ×2 (03:52→17:54)
[2018-09-17 04:00] VITALS: BP 120/54
[2018-09-17] MEDS: SODIUM CHLORIDE 0.9% INJ 3ML FLUSH IVF SCH ×3 (05:45→21:52)
[2018-09-17] MEDS: BLOOD SUGAR DIAGNOSTIC STRIP TEST SCH ×4 (05:55→21:11)
[2018-09-17 07:20] LABS: CHLORIDE 103 mEq/L (98-107)
[2018-09-17 07:34] LABS: HEMATOCRIT. 27.4 % (36.0-48.0); HEMOGLOBIN. 8.9 g/dL (12.0-16.0); MEAN CORPUSCULAR VOLUME 89.2 fL (81.0-99.0); PLATELET 217 x1000/uL (130-400); RED BLOOD CELL COUNT 3.07 mill/uL (4.2-5.4); RED CELL DISTRIBUTION WIDTH 19.4 % (11.6-14.6)
[2018-09-17 08:00] VITALS: BP 137/58
[2018-09-17 08:01] LABS: TOTAL IRON BINDING CAPACITY 255 ug/dL (250-450)
[2018-09-17] MEDS: POTASSIUM CHLORIDE 20MEQ TABLET SR PO SCH ×2 (09:35→14:37)
[2018-09-17] MEDS: ASPIRIN 81MG EC TABLET PO SCH (09:35)
[2018-09-17] MEDS: FERROUS SULFATE 325MG TABLET PO SCH ×3 (09:35→17:54)
[2018-09-17] MEDS: INSULIN LISPRO 100 UNITS/ML SUBCUT SCH ×4 (09:37→21:00)
[2018-09-17] MEDS: ENOXAPARIN 40MG/0.4ML SYR SUBCUT SCH (09:40)
[2018-09-17] MEDS: IPRATROPIUM/ALBUTEROL 0.5-3(2.5)MG/3ML NEB INH PRN ×3 (10:12→16:24)
[2018-09-17 10:22] LABS: T4 FREE 0.82 ng/dL (0.76-1.46)
[2018-09-17 12:00] VITALS: BP 123/50
[2018-09-17] MEDS: BENZONATATE 100MG CAPSULE PO SCH ×2 (14:38→21:52)
[2018-09-17 20:00] VITALS: BP 128/48
[2018-09-17] MEDS: DIPHENHYDRAMINE 50MG/ML VIAL IV PRN (21:52)
[2018-09-18] VITALS: BP 137/49
[2018-09-18] MEDS: IPRATROPIUM/ALBUTEROL 0.5-3(2.5)MG/3ML NEB INH PRN ×6 (00:10→20:32)
[2018-09-18] MEDS: HYDROMORPHONE HCL/PF 2MG/ML CPJ IV PRN ×4 (02:41→21:34)
[2018-09-18 04:00] VITALS: BP 134/49
[2018-09-18] MEDS: SODIUM CHLORIDE 0.9% INJ 3ML FLUSH IVF SCH ×3 (06:02→21:34)
[2018-09-18] MEDS: BLOOD SUGAR DIAGNOSTIC STRIP TEST SCH ×4 (06:02→21:35)
[2018-09-18] MEDS: BENZONATATE 100MG CAPSULE PO SCH ×3 (06:02→21:33)
[2018-09-18 06:39] LABS: BASOPHILS % 0.1 % (0.0-2.0); HEMATOCRIT. 27.4 % (36.0-48.0); HEMOGLOBIN. 8.7 g/dL (12.0-16.0); LYMPHOCYTES % 13.7 % (20.0-50.0); MEAN CORPUSCULAR HEMOGLOBIN 28.5 pg (28.0-32.0); MEAN CORPUSCULAR VOLUME 89.9 fL (81.0-99.0); MEAN PLATELET VOLUME 8.1 fl (7.4-10.4); MONOCYTES % 10.5 % (2.0-8.0); NEUTROPHILS % 75.7 % (40.0-76.0); PLATELET 214 x1000/uL (130-400); RED BLOOD CELL COUNT 3.05 mill/uL (4.2-5.4)
[2018-09-18 08:00] VITALS: BP 122/44
[2018-09-18] MEDS: INSULIN LISPRO 100 UNITS/ML SUBCUT SCH ×4 (08:10→21:35)
[2018-09-18] MEDS ORDERED: PREDNISONE 20MG TABLET PO SCH (09:00)
[2018-09-18] MEDS: POTASSIUM CHLORIDE 20MEQ TABLET SR PO SCH (09:14)
[2018-09-18] MEDS: ASPIRIN 81MG EC TABLET PO SCH (09:14)
[2018-09-18] MEDS: FERROUS SULFATE 325MG TABLET PO SCH (09:14)
[2018-09-18] MEDS: ENOXAPARIN 40MG/0.4ML SYR SUBCUT SCH (09:15)
[2018-09-18] MEDS: IRON SUCROSE COMPLEX 100 MG/5 ML ML IV SCH (10:55)
[2018-09-18 12:00] VITALS: BP 125/43
[2018-09-18 16:00] VITALS: BP 125/39
[2018-09-18 20:00] VITALS: BP 136/63
[2018-09-19] VITALS: BP 130/63
[2018-09-19] MEDS: IPRATROPIUM/ALBUTEROL 0.5-3(2.5)MG/3ML NEB INH PRN ×3 (01:23→11:02)
[2018-09-19] MEDS: HYDROMORPHONE HCL/PF 2MG/ML CPJ IV PRN ×3 (03:55→19:45)
[2018-09-19 04:00] VITALS: BP 123/52
[2018-09-19] MEDS: BENZONATATE 100MG CAPSULE PO SCH ×3 (05:46→21:43)
[2018-09-19] MEDS: BLOOD SUGAR DIAGNOSTIC STRIP TEST SCH ×4 (05:46→21:00)
[2018-09-19] MEDS: SODIUM CHLORIDE 0.9% INJ 3ML FLUSH IVF SCH ×3 (05:46→21:44)
[2018-09-19 07:00] LABS: BASOPHILS % 0.4 % (0.0-2.0); EOSINOPHILS % 0.2 % (0.0-5.0); HEMATOCRIT. 27.5 % (36.0-48.0); HEMOGLOBIN. 8.7 g/dL (12.0-16.0); LYMPHOCYTES % 23.5 % (20.0-50.0); MEAN CORPUSCULAR HEMOGLOBIN 28.6 pg (28.0-32.0); MEAN PLATELET VOLUME 8.3 fl (7.4-10.4); MONOCYTES % 9.4 % (2.0-8.0); NEUTROPHILS % 66.5 % (40.0-76.0); PLATELET 195 x1000/uL (130-400); RED BLOOD CELL COUNT 3.06 mill/uL (4.2-5.4); RED CELL DISTRIBUTION WIDTH 19.3 % (11.6-14.6)
[2018-09-19 08:00] VITALS: BP 114/45
[2018-09-19] MEDS: INSULIN LISPRO 100 UNITS/ML SUBCUT SCH ×4 (08:10→21:00)
[2018-09-19] MEDS ORDERED: PREDNISONE 10MG TABLET PO SCH (09:00)
[2018-09-19] MEDS: ASPIRIN 81MG EC TABLET PO SCH (09:06)
[2018-09-19] MEDS: ENOXAPARIN 40MG/0.4ML SYR SUBCUT SCH (09:08)
[2018-09-19] MEDS: IRON SUCROSE COMPLEX 100 MG/5 ML ML IV SCH (10:04)
[2018-09-19 12:00] VITALS: BP 145/70
[2018-09-19 16:00] VITALS: BP 142/98
[2018-09-19 20:00] VITALS: BP 148/52
[2018-09-19] MEDS: DIPHENHYDRAMINE 50MG/ML VIAL IV PRN (21:40)
[2018-09-20] VITALS: BP 150/68
[2018-09-20] MEDS: HYDROMORPHONE HCL/PF 2MG/ML CPJ IV PRN ×2 (00:29→07:58)
[2018-09-20 04:00] VITALS: BP 118/53
[2018-09-20] MEDS: BENZONATATE 100MG CAPSULE PO SCH (06:13)
[2018-09-20] MEDS: BLOOD SUGAR DIAGNOSTIC STRIP TEST SCH (07:44)
[2018-09-20] MEDS: INSULIN LISPRO 100 UNITS/ML SUBCUT SCH (07:44)
[2018-09-20] MEDS: ENOXAPARIN 40MG/0.4ML SYR SUBCUT SCH (07:54)
[2018-09-20] MEDS: DIPHENHYDRAMINE 50MG/ML VIAL IV PRN (07:54)
[2018-09-20] MEDS: ASPIRIN 81MG EC TABLET PO SCH (07:54)
[2018-09-20 08:00] VITALS: BP_SYST 108; BP_SYST 142; BP_DIAS 41; BP_DIAS 86
[2018-09-20] MEDS: IRON SUCROSE COMPLEX 100 MG/5 ML ML IV SCH (08:00)
[2018-09-20 12:00] VITALS: BP 144/49
[2018-09-20 12:40] VITALS: BP 144/49
[2018-09-20 16:00] VITALS: BP 138/49
== END 2018-09-20 17:31 | disposition home or self-care (01) | DRG 291 ==
LOC: ER 21:44 → 7WST 09-16 00:54 → EDBEDREQSVC 09-16 00:58 → EDBEDREQDT 09-16 00:58 → EDBEDREQ 09-16 00:58 → EDBEDREQTM 09-16 00:58 → ENRESERV 09-16 04:22
PROVIDERS: ADMIT Internal Medicine; ATTEND Internal Medicine
DX: I13.0 Hypertensive heart and chronic kidney disease with heart failure and stage 1 through stage 4 chronic kidney disease, or unspecified chronic kidney disease (principal); J96.20 Acute and chronic respiratory failure, unspecified whether with hypoxia or hypercapnia; I50.33 Acute on chronic diastolic (congestive) heart failure; J44.1 Chronic obstructive pulmonary disease with (acute) exacerbation; N18.4 Chronic kidney disease, stage 4 (severe); Z68.42 Body mass index [BMI] 45.0-49.9, adult; E11.22 Type 2 diabetes mellitus with diabetic chronic kidney disease; E87.6 Hypokalemia; D50.9 Iron deficiency anemia, unspecified; D72.1 Eosinophilia; E78.5 Hyperlipidemia, unspecified; G89.29 Other chronic pain; M19.90 Unspecified osteoarthritis, unspecified site; E66.9 Obesity, unspecified; G47.00 Insomnia, unspecified; F41.8 Other specified anxiety disorders; R07.89 Other chest pain; I49.3 Ventricular premature depolarization; M47.812 Spondylosis without myelopathy or radiculopathy, cervical region; T50.2X5A Adverse effect of carbonic-anhydrase inhibitors, benzothiadiazides and other diuretics, initial encounter; Z90.49 Acquired absence of other specified parts of digestive tract; Z90.710 Acquired absence of both cervix and uterus; Z99.81 Dependence on supplemental oxygen; Y92.89 Other specified places as the place of occurrence of the external cause; Z88.0 Allergy status to penicillin; Z88.5 Allergy status to narcotic agent; Z79.51 Long term (current) use of inhaled steroids; Z79.899 Other long term (current) drug therapy
CPT/HCPCS: 36415; 71045; 71046; 80048; 82270; 82550; 82553; 82728; 82962; 83540; 83550; 83605; 83880; 84145; 84439; 84443; 84484; 85044; 85651; 93005; 94640; 94660; 96365; 96375; 99285; J1170; J1200; J1650; J1815; J1940; J2930; J3480; J7060; J7512; J7611; J7620

== ENCOUNTER → 2020-08-15 | Day surgery (SDC) | payer MEDICARE, MEDICAID ==
[~2020-08-15] VITALS: Ht 165.1 cm; Wt 112.9 kg
[~2020-08-15] MED LIST changes: +ASPI-1497 PO; +ATOR20TA65 PO; +BALANCED SALT IRRIG SOLN 15ML ONE; +BALANCED SALT IRRIG SOLN COMB1 500ML OP SCH; +BUPIVACAINE HCL/PF 0.75% (7.5MG/ML) 10ML ONE; +CARV3.1242 PO; +CHOL400D7 PO; +EPOE200014 SQ; +ESCI10TA PO; -FERR-63 PO; +FERR325T6 PO; +GABA-529 PO; +HYALURONATE SODIUM 10 MG/ML 0.55ML SYRINGE IO ONE; +ISOS30TA12 MT; +LIDOCAINE HCL 2%/EPINEPHRINE 1:100,000 20 ML VIAL INFIL ONE; -LIP40 PO; -LOSA25TA12 PO; +LOSA25TA26 PO; +MELA5TAB3 PO; +MELO-104 MT; +METHYLPREDNISOLONE SOD SUCC 40 MG/ML VIAL ONE; +MIDAZOLAM HCL 2 MG/2 ML VIAL ONE; -MONT10TA24 PO; +MONT10TA32 PO; +OXYC-485 PO; -OXYC-579 PO; +PANT40SU MT; +PHENYLEPHRINE 2.5% OPHTH 15 DROP/ML BOTTLE LEFTEYE SCH; +PHENYLEPHRINE HCL 2.5% OPHTH DROPS 2ML ONE; +PROPOFOL 200MG/20ML VIAL IV ONE; +SODIUM CHLORIDE 0.9% 1,000 ML IV SCH; +TETRACAINE 0.5% OPHTH DROPS 4ML ONE; +TIOT18CA3 IH; +TOBRAMYCIN/DEXAMETH 0.1/0.3% OPHTH SUSP 2.5ML ONE; +TROPICAMIDE 1% OPHTH DROPS 15ML LEFTEYE SCH; +TROPICAMIDE 1% OPHTH DROPS 15ML ONE
[2020-08-15 07:01] LABS: EOSINOPHILS % 4.5 % (0.0-5.0); HEMATOCRIT. 29.8 % (36.0-48.0); HEMOGLOBIN. 9.5 g/dL (12.0-16.0); LYMPHOCYTES % 14.8 % (20.0-50.0); MEAN CORPUSCULAR VOLUME 87.4 fL (81.0-99.0); MEAN PLATELET VOLUME 8.5 fl (7.4-10.4); MONOCYTES % 10.2 % (2.0-8.0); NEUTROPHILS % 69.5 % (40.0-76.0); PLATELET 199 x1000/uL (130-400); RED BLOOD CELL COUNT 3.41 mill/uL (4.2-5.4); RED CELL DISTRIBUTION WIDTH 18.4 % (11.6-14.6)
== END | disposition home or self-care (01) ==
LOC: OR 05:25
PROVIDERS: ATTEND Ophthalmology
DX: E11.36 Type 2 diabetes mellitus with diabetic cataract (principal); H25.012 Cortical age-related cataract, left eye; E66.9 Obesity, unspecified; I13.0 Hypertensive heart and chronic kidney disease with heart failure and stage 1 through stage 4 chronic kidney disease, or unspecified chronic kidney disease; E11.22 Type 2 diabetes mellitus with diabetic chronic kidney disease; N18.9 Chronic kidney disease, unspecified; J44.9 Chronic obstructive pulmonary disease, unspecified; I25.10 Atherosclerotic heart disease of native coronary artery without angina pectoris; M19.90 Unspecified osteoarthritis, unspecified site; F41.9 Anxiety disorder, unspecified; E78.00 Pure hypercholesterolemia, unspecified; Z86.73 Personal history of transient ischemic attack (TIA), and cerebral infarction without residual deficits; Z79.899 Other long term (current) drug therapy; Z79.82 Long term (current) use of aspirin; Z79.84 Long term (current) use of oral hypoglycemic drugs; Z98.890 Other specified postprocedural states; Z88.0 Allergy status to penicillin; Z88.1 Allergy status to other antibiotic agents; Z88.8 Allergy status to other drugs, medicaments and biological substances; Z88.5 Allergy status to narcotic agent; Z90.49 Acquired absence of other specified parts of digestive tract
CPT/HCPCS: 36415; 66984; 80048; 82962; 85025; 93005; J2250; J2704; J3490; V2632; J2920

== ENCOUNTER → 2021-04-23 | Day surgery (SDC) | payer MEDICARE, MEDICAID ==
[~2021-04-23] VITALS: Ht 162.6 cm; Wt 98.4 kg
[~2021-04-23] MED LIST changes: +ACETYLCHOLINE CHLORIDE INTRAOCULAR SOLUTION 1:100 ELECTROLYTE DILUENT IO ONE; +DEXAMETHASONE 4MG/ML 1ML VIAL ONE; +FENTANYL CITRATE/PF 50MCG/ML 2ML VIAL ONE; +GENTAMICIN SULF 40MG/ML 2ML VIAL ONE; +HYDROMORPHONE HCL/PF 2MG/ML CPJ IV PRN; +LABETALOL 5MG/ML SYR 20 MG/4 ML SYRINGE IV PRN; +MEPERIDINE HCL/PF 25MG/ML CPJ IV PRN; +ONDANSETRON HCL 4MG/2ML INJ IV PRN; +ONDANSETRON HCL 4MG/2ML INJ ONE; -PHENYLEPHRINE 2.5% OPHTH 15 DROP/ML BOTTLE LEFTEYE SCH; +PHENYLEPHRINE 2.5% OPHTH 15 DROP/ML BOTTLE RIGHTEYE NR; -TETRACAINE 0.5% OPHTH DROPS 4ML ONE; -TROPICAMIDE 1% OPHTH DROPS 15ML LEFTEYE SCH; +TROPICAMIDE 1% OPHTH DROPS 15ML RIGHTEYE NR
[2021-04-23 11:29] VITALS: BP 143/81
== END | disposition home or self-care (01) ==
LOC: OR 07:49
PROVIDERS: ATTEND Ophthalmology
DX: E11.36 Type 2 diabetes mellitus with diabetic cataract (principal); H25.89 Other age-related cataract; J44.9 Chronic obstructive pulmonary disease, unspecified; I13.0 Hypertensive heart and chronic kidney disease with heart failure and stage 1 through stage 4 chronic kidney disease, or unspecified chronic kidney disease; I50.9 Heart failure, unspecified; E11.22 Type 2 diabetes mellitus with diabetic chronic kidney disease; N18.9 Chronic kidney disease, unspecified; I25.10 Atherosclerotic heart disease of native coronary artery without angina pectoris; E78.00 Pure hypercholesterolemia, unspecified; E66.9 Obesity, unspecified; F41.9 Anxiety disorder, unspecified; F32.9 Major depressive disorder, single episode, unspecified; J45.909 Unspecified asthma, uncomplicated; Z79.82 Long term (current) use of aspirin; Z79.899 Other long term (current) drug therapy; Z98.890 Other specified postprocedural states; Z20.822 Contact with and (suspected) exposure to COVID-19
CPT/HCPCS: 66984; 67005; 82962; 87426; C1893; J1100; J1170; J1580; J2250; J2405; J2704; J2920; J3010; J3490; V2630